=== PATIENT | female | born 1960 | race Caucasian/White ===

== ENCOUNTER → 2021-02-22 | Outpatient (CLI) | payer OTHER ==
--- NOTE | 2021-02-22 19:59 | DIREP ---
PROCEDURE:BONE DENSITY PERIPHERAL INDICATIONS:OSTEOPENIA COMPARISON:None. FINDINGS: Proximal right femur bone mineral density (BMD) (g/cm2):0.907 Right Femur T-score (standard deviation relative to young adult mean BMD):-0.8 Right Femur Z-score (standard deviation relative to age-matched control group): 0.0 Proximal left femur bone mineral density (BMD) (g/cm2):0.927 Left Femur T-score (standard deviation relative to young adult mean BMD):-0.6 Left Femur Z-score (standard deviation relative to age-matched control group): 0.2 Lumbar bone mineral density (BMD) (g/cm2):1.012 Lumbar T-score (standard deviation relative to young adult mean BMD):-1.5 Lumbar Z-score (standard deviation relative to age-matched control group):-0.4 Change since prior exam (%): Femur:Not applicable. Spine:Not applicable. Change since oldest prior exam (%): Femur:Not applicable. Spine:Not applicable. CONCLUSION: 1. Bone mineral density in the lumbar spine falls within the range of osteopenia. 2. Bone mineral densities in both proximal femurs fall within the range of a young normal. 3. Based on left femoral neck, 10 year probability of major osteoporotic fracture is 6.5% and hip fracture is 0.3%. *Note: The Z-score is provided for informational purposes. The T-score is preferable for clinical decisions. When comparing exams, a change of >4% is considered statistically significant. SUGGESTED RECOMMENDATIONS: Normal & Osteopenia:Consideration should be given to use of calcium supplementation, daily multiple vitamins and adequate exercise, as preventive measures against osteoporosis, if clinically indicated. Osteoporosis & Severe Osteoporosis:In addition to the above, consideration should be given to medical therapy against osteoporosis, if clinically indicated. Dictated by: Fredy Montano M.D. on 02/22/2021 at 07:56 PM
== END | disposition home or self-care (01) ==
LOC: BD 14:17
PROVIDERS: ATTEND Physician Assistant
DX: M85.88 Other specified disorders of bone density and structure, other site (principal)
CPT/HCPCS: 77080

== ENCOUNTER → 2021-03-01 | Outpatient (CLI) | payer OTHER ==
--- NOTE | 2021-03-01 09:51 | DIREP ---
PROCEDURE:US ABDOMEN LIMITED COMPARISON:None. INDICATIONS:ELEVATED LFT'S TECHNIQUE:High resolution sonographic examination was performed of the abdomen. FINDINGS: PANCREAS:Visualized body images normally. The head and tail are partially obscured by bowel gas. LIVER:Normal hepatic parenchymal architecture. No focal hepatic lesion identified. There is hepatopetal flow in the portal vein. GALLBLADDER:Normal appearing gallbladder without evidence for gallbladder wall thickening or pericholecystic fluid. BILIARY:There is no biliary ductal dilatation. RIGHT KIDNEY:Normal. No hydronephrosis. OTHER:Mild splenomegaly. The spleen measures 13.0 x 6.0 x 12.2 cm with an estimated volume of 501 cc. No ascites is identified. CBD:0.4 cm. GALLBLADDER WALL: 0.1 cm. LIVER: 16.3 cm in length. RIGHT KIDNEY: 11.0 x 4.6 x 4.9 cm. Cortex: 0.9 cm CONCLUSION: 1. Mild hepatosplenomegaly. No focal hepatic or splenic lesion is identified. 2. Otherwise normal right upper quadrant ultrasound, as visualized. Dictated by: Andrzej Abbott M.D. on 03/01/2021 at 09:46 AM
== END | disposition home or self-care (01) ==
LOC: RAD 02-17 09:11
PROVIDERS: ATTEND Physician Assistant
DX: R16.2 Hepatomegaly with splenomegaly, not elsewhere classified (principal); R94.5 Abnormal results of liver function studies
CPT/HCPCS: 76705

== ENCOUNTER → 2023-01-31 | Outpatient (CLI) | payer OTHER | END | disposition home or self-care (01) | LOC: RAD 15:43 | PROVIDERS: ATTEND Physician Assistant | DX: R22.1 Localized swelling, mass and lump, neck (principal) | CPT/HCPCS: 70492; Q9965 ==